=== PATIENT | female | born 1985 | race African-American/Black ===

== ENCOUNTER 2025-04-20 23:06 | Emergency (ER) | payer OTHER, MEDICAID ==
[~2025-04-20] VITALS: Ht 137.2 cm; Wt 50.0 kg
[2025-04-20 23:14] VITALS: O2SAT 99
[2025-04-21] MEDS: KETOROLAC 15MG/ML VIAL IM ONE (00:33)
[2025-04-21] MEDS: TETANUS, DIPHTHERIA, PERTUSSIS VAC/PF 0.5ML (>10YR OLD) IM ONE (00:34)
[2025-04-21] MEDS ORDERED: NAPR-1176 MT (03:07)
[2025-04-21] MEDS ORDERED: CYCL5TAB3 MT (03:07)
[2025-04-21] MEDS ORDERED: LIDO-53 TP (03:07)
[2025-04-21] MEDS: LIDOCAINE HCL 1% 20ML VIAL INFIL ONE (03:07)
[2025-04-21 03:23] VITALS: BP 105/76; PULSE 85; RESP 14; TEMP 36.7; O2SAT 99
== END 2025-04-21 03:35 | disposition home or self-care (01) ==
LOC: ER 23:53
DX: S11.91XA Laceration without foreign body of unspecified part of neck, initial encounter (principal); V89.2XXA Person injured in unspecified motor-vehicle accident, traffic, initial encounter; Y93.89 Activity, other specified; Y92.410 Unspecified street and highway as the place of occurrence of the external cause; Y99.8 Other external cause status
CPT/HCPCS: 99285; 70490; 12002; 90715; 90471; 96372; J1885; J2003; 12013